=== PATIENT | female | born 1980 | race Caucasian/White ===

== ENCOUNTER 2021-05-05 12:39 | Emergency (ER) | payer BC ==
[2021-05-05 12:52] VITALS: TEMP 97.8; BMI 28.3
[2021-05-05] MEDS ORDERED: RABIES VACCINE (PCEC)/PF 2.5 UNIT/VIAL IM ONE ×3 (13:32→14:50)
[2021-05-05] MEDS ORDERED: RABIES IMMUNE GLOBULIN 300 UNITS/1 ML VIAL IM ONE (13:32)
[2021-05-05 16:05] VITALS: BP 121/61; PULSE 70
== END 2021-05-05 15:00 | disposition home or self-care (01) ==
LOC: JER 12:39 → JERFT 12:39
PROC: 3E0234Z Introduction of Serum, Toxoid and Vaccine into Muscle, Percutaneous Approach (ICD-10-PCS; principal; 2021-05-05)
DX: S60.511A Abrasion of right hand, initial encounter (principal); W55.03XA Scratched by cat, initial encounter
CPT/HCPCS: 90375; 90675; 99284-25

== ENCOUNTER 2021-05-08 15:55 | Emergency (ER) | payer BC ==
[2021-05-08 16:06] VITALS: BP 104/55; PULSE 60; TEMP 97.9; BMI 28.3
[2021-05-08] MEDS ORDERED: RABIES VACCINE (PCEC)/PF 2.5 UNIT/VIAL IM ONE ×2 (16:14→16:30)
== END 2021-05-08 17:24 | disposition home or self-care (01) ==
LOC: JERFT 15:55
PROC: 3E0234Z Introduction of Serum, Toxoid and Vaccine into Muscle, Percutaneous Approach (ICD-10-PCS; principal; 2021-05-08)
DX: Z29.14 Encounter for prophylactic rabies immune globulin (principal)
CPT/HCPCS: 90675; 99284-25

== ENCOUNTER 2021-05-12 09:04 | Emergency (ER) | payer BC ==
[2021-05-12 09:10] VITALS: BP 121/71; PULSE 84; TEMP 98.6; BMI 28.3
[2021-05-12] MEDS ORDERED: RABIES VACCINE (PCEC)/PF 2.5 UNIT/VIAL IM ONE ×2 (09:12→09:35)
== END 2021-05-12 09:47 | disposition home or self-care (01) ==
LOC: JERFT 09:04
PROC: 3E0234Z Introduction of Serum, Toxoid and Vaccine into Muscle, Percutaneous Approach (ICD-10-PCS; principal; 2021-05-12)
DX: Z29.14 Encounter for prophylactic rabies immune globulin (principal)
CPT/HCPCS: 90675; 99283-25

== ENCOUNTER 2021-05-19 17:11 | Emergency (ER) | payer BC ==
[2021-05-19 17:26] VITALS: BP 112/43; PULSE 72; TEMP 98.4; BMI 27.4
[2021-05-19] MEDS ORDERED: RABIES VACCINE (PCEC)/PF 2.5 UNIT/VIAL IM ONE ×2 (17:26→17:28)
== END 2021-05-19 17:48 | disposition home or self-care (01) ==
LOC: JERFT 17:11 → JER 17:11 → JERFT 17:48
PROC: 3E0234Z Introduction of Serum, Toxoid and Vaccine into Muscle, Percutaneous Approach (ICD-10-PCS; principal; 2021-05-19)
DX: Z20.3 Contact with and (suspected) exposure to rabies (principal)
CPT/HCPCS: 90675; 99283-25

== ENCOUNTER 2021-05-26 17:06 | Emergency (ER) | payer BC ==
[2021-05-26 17:23] VITALS: TEMP 98.1; BMI 27.4
[2021-05-26 17:24] VITALS: BP 128/78; PULSE 64
[2021-05-26] MEDS ORDERED: KETOROLAC TROMETHAMINE 60 MG/2 ML VIAL IM ONE (18:16)
[2021-05-26] MEDS ORDERED: KETOROLAC TROMETHAMINE 60 MG/2 ML VIAL ONE (18:19)
== END 2021-05-26 19:20 | disposition home or self-care (01) ==
LOC: JER 17:06
PROC: 3E0233Z Introduction of Anti-inflammatory into Muscle, Percutaneous Approach (ICD-10-PCS; principal; 2021-05-26)
DX: S20.221A Contusion of right back wall of thorax, initial encounter (principal); S50.00XA Contusion of unspecified elbow, initial encounter; W10.9XXA Fall (on) (from) unspecified stairs and steps, initial encounter
CPT/HCPCS: 72070-TC-FY; 72100-TC-FY; 73523-TC-FY; 84703; 99285-25